=== PATIENT | female | born 1960 | race Caucasian/White ===

== ENCOUNTER 2023-12-28 21:02 | Emergency (ER) | payer OTHER ==
[~2023-12-28] VITALS: Ht 165.1 cm; Wt 90.7 kg
[2023-12-28 21:39] VITALS: BP_SYST 135; PULSE 91; TEMP 97.8; O2SAT 96
[2023-12-28] MEDS: KETOROLAC TROMETHAMINE 30 MG VIAL IM ONE (23:26)
[2023-12-28 23:32] VITALS: BP_SYST 137; PULSE 79; RESP 18; TEMP 97.6; O2SAT 94
[2023-12-28] MEDS ORDERED: HYDR-3917 PO (23:51)
== END 2023-12-29 00:16 | disposition home or self-care (01) ==
LOC: SED 21:02
DX: M25.561 Pain in right knee (principal); M79.604 Pain in right leg; I10 Essential (primary) hypertension; E78.5 Hyperlipidemia, unspecified; Z88.1 Allergy status to other antibiotic agents; Z79.899 Other long term (current) drug therapy
CPT/HCPCS: 99285; 93970; 73564; 96372; J1885